=== PATIENT | female | born 1965 ===

== ENCOUNTER 2024-11-18 05:25 | Day surgery (SDC) | payer OTHER ==
[2024-11-06 12:59] VITALS: BP 108/70
[~2024-11-18] VITALS: Ht 160 cm; Wt 59.4 kg
[~2024-11-18 05:25] MED LIST: CALCIUM PO; CRESTOR5 MG PO; HORIZANT300 MG PO; OMEGA PO; PROTONIX PO; SYNTHROID125 MCG PO; VITAMIN C PO; VITAMIN C60 MG PO; [UNRECOGNIZED DRUG - OTHER] PO
[2024-11-18] MEDS ORDERED: BUPIVACAINE HCL 30 ML VIAL IJ ONE (08:00)
[2024-11-18] MEDS ORDERED: HEMOSTATIC MATRIX 1 KIT KIT TOP ONE (08:00)
[2024-11-18] MEDS ORDERED: DIBUCAINE 30 GM TUBE RECTAL ONE (08:00)
[2024-11-18] MEDS ORDERED: POVIDONE-IODINE 118 ML BOTT TOP ONE (08:00)
[2024-11-18] MEDS ORDERED: BUPIVACAINE LIPOSOME/PF 266 MG/20 ML VIAL IJ ONE (08:00)
[2024-11-18] MEDS ORDERED: METRONIDAZOLE/SODIUM CHLORIDE 500 MG/100 ML PIGGYBACK IV ONE (08:00)
[2024-11-18] MEDS ORDERED: CEFTRIAXONE SODIUM 2,000 MG VIAL IV ONE (08:00)
[2024-11-18] MEDS ORDERED: TRAM1TAB98 PO (10:15)
[2024-11-18] MEDS ORDERED: INTESTINEX680 M1 PO (10:15)
[2024-11-18] MEDS ORDERED: NEURONTIN300 MG PO (10:15)
== END 2024-11-18 13:00 | disposition home or self-care (01) ==
LOC: CIR.AMB 05:25
PROVIDERS: ATTEND Surgery
DX: D12.8 Benign neoplasm of rectum (principal); K64.4 Residual hemorrhoidal skin tags; Z86.0100 Personal history of colon polyps, unspecified